=== PATIENT | female | born 2000 | race Two or more races ===

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

== ENCOUNTER 2018-09-03 20:52 | Emergency (ER) | payer MEDICAID, OTHER ==
--- NOTE | 2018-09-03 21:10 | NUR ---
PT [facility]OTHER FROM HOME COMPLAINING OF PRODUCTIVE COUGH X2 WEEKS WITH YELLOW SPUTUM. PT DENIES SOB, CHEST PAIN, N/V/D. PT AAOX4. RESPIRATIONS EVEN AND UNLABORED. NO ACUTE DISTRESS NOTED. WILL CONTINUE TO MONITOR
[2018-09-03] MEDS ORDERED: IBUPROFEN 600 MG TABLET PO ONE ×2 (21:30→21:46)
--- NOTE | 2018-09-03 21:30 | NUR ---
RADIOLOGY AT BEDSIDE FOR CXR
--- NOTE | 2018-09-03 21:55 | NUR ---
FLU SWAB SENT TO LAB
--- NOTE | 2018-09-03 23:10 | NUR ---
Patient discharged to home in stable condition. Written and verbal after care instructions given. Patient verbalizes understanding of instruction. Pt ambulatory with a steady gait
[2018-09-03 23:11] VITALS: BP 104/58
== END 2018-09-03 23:11 | disposition home or self-care (01) ==
LOC: ER 20:56
DX: J09.X2 Influenza due to identified novel influenza A virus with other respiratory manifestations (principal)
CPT/HCPCS: 71045-TC; 87400